=== PATIENT | male | born 2005 | race Caucasian/White ===

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

== ENCOUNTER 2023-01-31 07:15 | Day surgery (SDC) | payer OTHER, SELFPAY ==
--- NOTE | 2023-01-30 20:31 | HO.ANESPROP2 ---
HPI - Anesthesia Eval Consult details Narrative: egd, colonoscopy R/O Chron's PMFSH Active Problems Active Problems: All Active Problems (Updated 01/22/22 @ 13:53 by Jomar Estrella MD) Abnormal EKG (Acute) Hematochezia (Acute) Elevated blood protein (Acute) Elevated liver enzymes (Acute) Elevated AFP (Acute) Chronic diarrhea (Acute) Rectal bleeding (Acute) Past Medical History Medical History Inflammation of colonic mucosa Family History Family History Mother Acute Crohn's disease High cholesterol Maternal Grandmother Colon cancer Family history of problems with anesthesia: No Surgical History Surgical History Hx of wisdom tooth extraction History of Problems with Anesthesia: No Social History Social History Household Members: Family Alcohol intake: never Patient Tobacco Use Status: Never used Tobacco Meds Allergies Allergy/AdvReac Type Severity Reaction Status Date / Time No Known Allergies Allergy Verified 12/25/21 12:25 Home Medications Medication Instructions Recorded Confirmed Last Taken Type guanfacine 1 mg tablet 1 mg PO DAILY 11/15/21 01/22/22 Unknown History venlafaxine 150 mg 150 mg PO DAILY 11/15/21 01/22/22 Unknown History capsule,extended release 24 hr venlafaxine 75 mg capsule,extended 75 mg PO DAILY 11/15/21 01/22/22 Unknown History release 24 hr Exam Exam Date and Time: January 30, 20232030 Airway Mallampati Class: II TM Dist: >3cm Neck ROM: Full Heart: rrr Lungs: cta Assessment and Plan Final Anesthetic Review Family History of Problems with Anesthesia: No History of Problems with Anesthesia: No NPO: Yes ASA Class: II Final Preanesthetic Review: No Changes in Pt Med Stat, Meds/Allgs Chart Reviewed, Consent Obtained/Reviewed and Anes Risks/Benef Reviewed Patient Risk: Intermediate Procedure Risk: Intermediate Anesthetic Plan Anesthetic Plan: GA Disposition: Standard PACU
[2023-01-31 08:16] VITALS: BMI 26.4
--- NOTE | 2023-01-31 08:22 | MHC.SHP ---
Pre-Procedural Eval Section A Date of Service: 01/31/23 Section B Chief Complaint: Abd pain, rectal bleeding Details of Present Illness: Surgical History Hx of wisdom tooth extraction Family History Mother Acute Crohn's disease High cholesterol Maternal Grandmother Colon cancer Present Medications: see Short Stay Collaborative assessment Allergies: Allergies Allergy/AdvReac Type Severity Reaction Status Date / Time Iodinated Contrast Media AdvReac Nausea and Verified 01/31/23 08:14 [IV Contrast Dye] Vomiting Review of Systems Review of Systems Comment: Ten point ROS as above Exam Exam Comment: Gen appear: No acute distress HEENT: no icterus Chest: No overt resp distress Abd: soft, nontender, nondistended Psych: Stable affect, answering questions appropriately Neuro: A/Ox3 noted to move all extremities spontaneously Ext: no peripheral edema Plan Diagnosis/Plan: Unchanged I have reviewed the history and physical and performed a pertinent physical examination on my patient. No changes have occurred unless specified. Time Spent With Patient Time: Total time managing care of this patient today ____ minutes.
[2023-01-31 08:33] VITALS: BP 130/69; PULSE 87; RESP 16; TEMP 37.1; O2SAT 98
[2023-01-31] MEDS: Lactated Ringers 1,000 ML 50 ML IVCONT (08:35)
--- NOTE | 2023-01-31 09:07 | W.PM.OPN ---
Operative Note Operative Note Date of Service: 01/31/23 Narrative: Procedure:?Esophagogastroduodenoscopy and colonoscopy Endoscopist:?Yamilex Brantley MD Indication:?Abd pain, diarrhea, rectal bleeding Anesthesia Provider:?Dr Sergio Silverio MD Anesthesia Type:?MAC Instrument:?Olympus GIF-H190, PCF-H190L EGD Procedure:?? The procedure, indications, preparation and potential complications were reviewed with the patient who indicated understanding and gave written informed consent to proceed. A physical exam was performed. The endoscope was introduced through the mouth, and advanced to the second part of duodenum. The mucosa was carefully examined on slow withdrawal of the endoscope. There were no immediate complications. Patient tolerated the procedure well. EGD Findings:? Esophagus:? Normal mucosa noted in the entire esophagus. The Z-line is at 41 cm. Middle and lower esophagus biopsies were taken to rule out eosinophilic esophagitis. Stomach:? Normal gastric mucosa. Retroflexion performed in the fundus. Cold forceps biopsies were taken to rule out H Pylori. Duodenum:? Normal duodenal mucosa noted to the extent examined. Cold forceps biopsies were taken from the duodenal bulb and 2nd portion the duodenum to rule out celiac sprue. Colonoscopy Procedure:? The patient was then turned for the colonoscopy. A digital rectal exam was performed which was abnormal for external hemorrhoids.? A distal attachment cap was affixed to the tip of the scope and the colonoscope was then inserted through the anus and advanced through the colon to the cecum at 70 cm and terminal ileum. Appendiceal orifice and ileocecal valve were identified. Mucosa was carefully examined under high definition white light as the instrument was slowly withdrawn in a retrograde panoramic fashion. Retroflexion was performed in rectum. The procedure was not difficult. There were no immediate obvious complications. The quality of the prep was BBPS: 3+2+3 = adequate Withdrawal time: 7 minutes Limitations: No limitation. Findings: Mucosa: Normal mucosa to cecum and terminal ileum. Cold forceps biopsies were taken from the right and left side of the colon to rule out microscopic colitis. Protruding lesions: Large internal hemorrhoids with stigmata of recent bleeding. Impression: 1. Normal esophagus (biopsy) 2. Normal stomach (biopsy) 3. Normal duodenum (biopsy) 4. Normal colon and terminal ileum mucosa (biopsy) 5. Large internal and external hemorrhoids Recommendations:?? Await pathology results. Rectal bleeding likely from large hemorrhoids noted on exam today. Lidocaine-hydrocort cream Rxed to be used for 10-14 days. CRC screening to begin at 45y.o or sooner if indicated.
[2023-01-31 09:47] VITALS: BP 90/37; PULSE 80; RESP 16; TEMP 36.2; O2SAT 95
[2023-01-31 10:02] VITALS: BP 98/47; PULSE 94; RESP 16; O2SAT 100
[2023-01-31 10:17] VITALS: BP 109/64; PULSE 86; RESP 16; O2SAT 97
== END 2023-01-31 10:46 | disposition home or self-care (01) ==
PROVIDERS: PCP Pediatrics; Visit Provider Internal Medicine
PROC: (CPT 45380; principal; 2023-01-31 09:10)
DX: K62.5 Hemorrhage of anus and rectum (principal); R19.7 Diarrhea, unspecified; K64.4 Residual hemorrhoidal skin tags; K64.8 Other hemorrhoids; R10.9 Unspecified abdominal pain; R74.8 Abnormal levels of other serum enzymes; K21.9 Gastro-esophageal reflux disease without esophagitis; F84.0 Autistic disorder; F41.1 Generalized anxiety disorder; Z79.899 Other long term (current) drug therapy; Z91.041 Radiographic dye allergy status
CPT/HCPCS: 45380; 43239; 88305; 88342

== ENCOUNTER → 2023-01-31 07:15 | Outpatient (BNV) | payer OTHER, SELFPAY | PROVIDERS: PCP Pediatrics; Visit Provider Internal Medicine | DX: R10.9 Unspecified abdominal pain (principal); K52.9 Noninfective gastroenteritis and colitis, unspecified; K62.5 Hemorrhage of anus and rectum | CPT/HCPCS: 43239; 45380 ==

== ENCOUNTER 2023-02-14 09:36 | Outpatient (AMB) | payer OTHER, SELFPAY ==
--- NOTE | 2023-02-14 09:45 | A.OFFVIS_ITS ---
Intake Vital Signs 02/14/23 09:49 Height 6 ft Weight 195 lb BMI 26.4 BP 131/72 Blood Pressure Location Lt brachial Position Sitting Pulse 92 Intake Visit Reasons: S/P Double; Dr. Brantley Intake Note: Patient follow up for EGD/Colonoscopy results and also lab and MRI. Patient denies any GI issues. 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 Brantley Seen initially by me and then followed with Dr. Brantley-due to complex history He presents today he is accompanied by his mother- Reviewed procedure report and refer recommendations He was prescribed rectal ointment by Dr. Damon unfortunately was not covered by his insurance. He says currently hemorrhoids are not as bothersome as they were initially. His diet lacks fiber however has difficulty managing different foods. Upper alternating stool pattern constipation diarrhea He has no nausea, vomiting hematemesis, medication fever she PFSH Medical History Inflammation of colonic mucosa Surgical History History of esophagogastroduodenoscopy (EGD) History of colonoscopy Hx of wisdom tooth extraction Family History Mother Acute Crohn's disease High cholesterol Maternal Grandmother Colon cancer Social History Household Members: Family Alcohol intake: never Patient Tobacco Use Status: Never used Tobacco Physical Exam Vital Signs: Last Vital Signs Pulse 92 02/14/23 09:49 BP 131/72 02/14/23 09:49 BMI result Body Mass Index 26.4 Results Reviewed Results Reviewed: Impression: 1. Normal esophagus (biopsy) 2. Normal stomach (biopsy) 3. Normal duodenum (biopsy) 4. Normal colon and terminal ileum mucosa (biopsy) 5. Large internal and external hemorrhoids Recommendations:?? * Await pathology results. * Rectal bleeding likely from large hemorrhoids noted on exam today. Lidocaine- hydrocort cream Rxed to be used for 10-14 days. * CRC screening to begin at 45y.o or sooner if indicated. Assessment & Plan Assessment & Plan (1) Rectal bleeding: Comment: Colonoscopy large hemorrhoids-likely cause Code(s): K62.5 - Hemorrhage of anus and rectum Plan: Recommendations:?? * Await pathology results. * Rectal bleeding likely from large hemorrhoids noted on exam today. Lidocaine- hydrocort cream Rxed to be used for 10-14 days. * CRC screening to begin at 45y.o or sooner if indicated. (2) Elevated liver enzymes: Comment: Will update liver enzymes sent to Pedi PCP-he is currently his PCP left the practice he is waiting to get established Just reviewed style dietary change-he does have difficulty with diet and food choices Code(s): R74.8 - Abnormal levels of other serum enzymes Plan: Update liver enzymes Orders: Orders Comprehensive Met. Panel Today K58.9 - Irritable bowel syndrome without diarrhea Complete Blood Count Auto Diff Today K62.5 - Hemorrhage of anus and rectum, R74.8 - Abnormal levels of other serum enzymes Lipid Panel Today K76.0 - Fatty (change of) liver, not elsewhere classified Medications: New calcium polycarbophil (Fiber Laxative (calcium polycarbophil)) 1,250 mg (2 x 625 mg) PO DAILY 30 days 60 tabs 3RF hydrocortisone 2.5% (Proctosol HC) 1 appl LA BEDTIME PRN 30 grams 3RF hemorrhoids Patient Instructions: Very pleasant 17-year-old male follows back after recent colonoscopy for rectal bleeding, likely cause hemorrhoids Discuss maintain a high-fiber diet which is difficult for him, we also discussed given trial to fiber gummies which he was willing to try Well hydrated Discussed surgical referral for hemorrhoids he he declines at this time. However she he reconsider we can put that through for him Labs to update liver enzymes-he may follow back with Dr. Brantley Will call for results Asymptomatic colonoscopy age 43 Encouraged to call with questions or concerns, very receptive Appreciate the opportunity assist in the care this pleasant patient ,mom present very supportive Coding Level of Care Code Est Pt Level 3 (49394) Diagnoses Rectal bleeding K62.5 Elevated liver enzymes R74.8 Time Spent (min) 40
[2023-02-14 09:49] VITALS: BP 131/72; PULSE 92; BMI 26.4
== END 2023-02-14 10:42 | disposition home or self-care (01) ==
PROVIDERS: PCP Pediatrics; Visit Provider Physician Assistant
DX: K62.5 Hemorrhage of anus and rectum (principal); R74.8 Abnormal levels of other serum enzymes
CPT/HCPCS: 99213

== ENCOUNTER → 2023-02-14 09:36 | Outpatient (BNVA) | payer OTHER, SELFPAY | PROVIDERS: PCP Pediatrics; Visit Provider Physician Assistant | DX: K62.5 Hemorrhage of anus and rectum (principal); R74.8 Abnormal levels of other serum enzymes | CPT/HCPCS: 99212 ==